=== PATIENT | male | born 1965 | race Caucasian/White ===

== ENCOUNTER 2018-09-25 16:00 | Outpatient (REF) | payer BC, SELFPAY ==
[2018-09-25 21:34] LABS: ALT 77 U/L (12-78); AST 43 U/L (15-37); Albumin 4.2 g/dL (3.4-5.0); Alkaline Phosphatase 90 U/L (46-116); Anion Gap 9.7 mmol/L (3-11); BUN 20 mg/dL (7-18); Bilirubin, Total 0.6 mg/dL (0.2-1.0); CO2 28.3 mmol/L (21.0-32.0); Chloride 103 mmol/L (98-107); Cholesterol 152 mg/dL (50-200); Glucose 95 mg/dL (70-100); HDL Cholesterol 29 mg/dL (40-60); LDL CHOLESTEROL 96 mg/dL (<100); Potassium 4.4 mmol/L (3.5-5.1); Sodium 141 mmol/L (136-145); TSH (W/Ref FT4) 2.12 uIU/mL (0.358-3.74); Total Protein 7.7 g/dL (6.4-8.2); Triglyceride 224 mg/dL (30-150)
[2018-09-25 21:58] LABS: Creatine Kinase 228 U/L (39-308)
[2018-09-29 09:13] LABS: Anaplasma phagocytophilum Negative (Negative); B. miyamotoi PCR Negative (Negative); Babesia divergens/MO-1 Negative (Negative); Babesia duncani Negative (Negative); Babesia microti Negative (Negative); Ehrlichia chaffeensis Negative (Negative); Ehrlichia ewingii/canis Negative (Negative); Ehrlichia muris eauclairensis Negative (Negative)
[2018-09-29 10:54] LABS: Rheumatoid Factor <8 IU/mL (<12.5)
[2018-09-29 12:49] LABS: Lyme Ab w Rflx to Lyme Confirm Negative
== END 2018-09-25 16:20 ==
LOC: NCHCN 16:00
PROVIDERS: PCP Family Medicine; Visit Provider Family Medicine
DX: E03.9 Hypothyroidism, unspecified (principal); I10 Essential (primary) hypertension; M25.50 Pain in unspecified joint
CPT/HCPCS: 80053; 80061; 82550; 83721; 84443; 86431; 86618; 87798

== ENCOUNTER 2019-03-26 19:09 | Outpatient (REF) | payer BC, SELFPAY ==
[2019-03-26 21:36] LABS: ALT 71 U/L (12-78); AST 35 U/L (15-37); Albumin 4.1 g/dL (3.4-5.0); Alkaline Phosphatase 108 U/L (46-116); Anion Gap 10.3 mmol/L (3-11); BUN 16 mg/dL (7-18); Bilirubin, Total 0.6 mg/dL (0.2-1.0); CO2 24.7 mmol/L (21.0-32.0); CREATININE 1.03 mg/dL (0.70-1.30); Calcium 8.6 mg/dL (8.5-10.1); Chloride 104 mmol/L (98-107); Glucose 84 mg/dL (70-100); Potassium 4.2 mmol/L (3.5-5.1); Sodium 139 mmol/L (136-145); TSH (W/Ref FT4) 1.13 uIU/mL (0.358-3.74); Total Protein 7.4 g/dL (6.4-8.2)
[2019-03-26 21:39] LABS: HCT 45.2 % (40.0-50.0); HGB 15.6 g/dL (13.5-17.5); Mean Corp. HGB Concentration 34.5 g/dL (32.0-36.0); Mean Corpuscular Hemoglobin 29.8 pg (27.0-33.0); Mean Corpuscular Volume 86.4 fL (80-95); Platelet Count 219 x1000/uL (130-400); RBC 5.23 m/cumm (4.50-6.00); RBC Distribution Width 12.4 % (11.8-14.1); White Blood Cell Count 7.43 k/cumm (4.4-10.8)
[2019-03-26 22:25] LABS: ESR 9 MM/HR (1-20)
[2019-03-30 11:13] LABS: Hepatitis C Ab w Rflx HCV PCR Negative (NEGAT)
== END 2019-03-26 19:29 ==
LOC: NCHCN 19:09
PROVIDERS: PCP Family Medicine; Visit Provider Family Medicine
DX: E03.9 Hypothyroidism, unspecified (principal); R53.83 Other fatigue; R94.5 Abnormal results of liver function studies; M25.50 Pain in unspecified joint; Z11.59 Encounter for screening for other viral diseases
CPT/HCPCS: 80053; 85027; 85652; 86803; 84443

== ENCOUNTER 2019-09-24 15:59 | Outpatient (REF) | payer BC, SELFPAY ==
[2019-09-24 22:22] LABS: ALT 72 U/L (16-63); AST 45 U/L (15-37); Albumin 4.1 g/dL (3.4-5.0); Alkaline Phosphatase 87 U/L (46-116); Anion Gap 11.1 mmol/L (3-11); BUN 21 mg/dL (7-18); Bilirubin, Total 0.5 mg/dL (0.2-1.0); CO2 24.9 mmol/L (21.0-32.0); CREATININE 1.15 mg/dL (0.70-1.30); Calcium 8.6 mg/dL (8.5-10.1); Chloride 105 mmol/L (98-107); Glucose 138 mg/dL (74-106); Potassium 4.1 mmol/L (3.5-5.1); Sodium 141 mmol/L (136-145); TSH (W/Ref FT4) 3.91 uIU/mL (0.36-3.74); Total Protein 7.3 g/dL (6.4-8.2)
[2019-09-24 22:48] LABS: FREE T4 0.83 ng/dL (0.76-1.46)
[2019-09-26 14:06] LABS: Calculated LDL 76 mg/dL; Cholesterol 147 mg/dL (<200); HDL Cholesterol 28 mg/dL (40-60); Triglyceride 217 mg/dL (<150)
== END 2019-09-24 16:19 ==
LOC: NCHCN 15:59
PROVIDERS: PCP Family Medicine; Visit Provider Family Medicine
DX: Z00.00 Encounter for general adult medical examination without abnormal findings (principal); E03.9 Hypothyroidism, unspecified; E78.5 Hyperlipidemia, unspecified; R94.5 Abnormal results of liver function studies
CPT/HCPCS: 80053; 80061; 84439; 84443

== ENCOUNTER 2020-03-10 16:49 | Outpatient (REF) | payer BC, SELFPAY ==
[2020-03-10 19:23] LABS: Hemoglobin A1C 5.9 % (3.8-5.6)
[2020-03-10 19:30] LABS: C-Reactive Protein 0.19 mg/dL (0.0-0.3); TSH (W/Ref FT4) 4.19 uIU/mL (0.36-3.74)
[2020-03-10 19:50] LABS: FREE T4 1.02 ng/dL (0.76-1.46)
[2020-03-10 20:26] LABS: Vitamin B12 438 pg/mL (193-986)
[2020-03-12 11:02] LABS: HIV-1/2 Ag & Ab Screen Negative (Negative)
[2020-03-14 10:58] LABS: Hepatitis C Ab w Rflx HCV PCR Negative (Negative)
[2020-03-14 14:49] LABS: Lyme Ab w Rflx to Lyme Confirm Negative (Negative)
[2020-03-14 18:38] LABS: Anaplasma phagocytophilum Negative (Negative); B. miyamotoi PCR Negative (Negative); Babesia divergens/MO-1 Negative (Negative); Babesia duncani Negative (Negative); Babesia microti Negative (Negative); Ehrlichia chaffeensis Negative (Negative); Ehrlichia ewingii/canis Negative (Negative); Ehrlichia muris eauclairensis Negative (Negative)
== END 2020-03-10 17:09 ==
LOC: NCHCN 16:49
PROVIDERS: PCP Family Medicine; Visit Provider Family Medicine
DX: E03.9 Hypothyroidism, unspecified (principal); R20.2 Paresthesia of skin; M25.50 Pain in unspecified joint; Z11.3 Encounter for screening for infections with a predominantly sexual mode of transmission; Z11.4 Encounter for screening for human immunodeficiency virus [HIV]; Z11.59 Encounter for screening for other viral diseases
CPT/HCPCS: 86803; 87389; 87491; 87591; 87798; 82607; 83036; 84439; 84443; 86140; 86618

== ENCOUNTER 2020-07-25 15:39 | Outpatient (REF) | payer BC, SELFPAY ==
[2020-07-28 02:33] LABS: Patient Race White; SARS-CoV-2 Specimen Source Nasopharynx
[2020-07-28 08:30] LABS: SARS-CoV-2 RNA Detected (Undetected)
== END 2020-07-25 15:59 ==
LOC: NCHCN 15:39
PROVIDERS: PCP Family Medicine; Visit Provider Family Medicine
DX: Z20.828 Contact with and (suspected) exposure to other viral communicable diseases (principal)
CPT/HCPCS: U0003

== ENCOUNTER 2021-01-12 15:55 | Outpatient (REF) | payer BC, SELFPAY ==
[2021-01-12 18:33] LABS: Hemoglobin A1C 5.9 % (<5.7)
[2021-01-12 18:36] LABS: ALT 99 U/L (16-63); AST 63 U/L (15-37); Albumin 4.1 g/dL (3.4-5.0); Alkaline Phosphatase 96 U/L (46-116); Anion Gap 10.9 mmol/L (3-11); BUN 18 mg/dL (7-18); Bilirubin, Total 0.8 mg/dL (0.2-1.0); CO2 25.1 mmol/L (21.0-32.0); CREATININE 1.1 mg/dL (0.70-1.30); Chloride 103 mmol/L (98-107); Glucose 107 mg/dL (74-106); Potassium 3.9 mmol/L (3.5-5.1); Sodium 139 mmol/L (136-145); TSH (W/Ref FT4) 1.85 uIU/mL (0.36-3.74); Total Protein 7.5 g/dL (6.4-8.2)
== END 2021-01-12 15:56 | disposition home or self-care (01) ==
LOC: NCHCN 15:55
PROVIDERS: PCP Family Medicine; Visit Provider Family Medicine
DX: Z00.00 Encounter for general adult medical examination without abnormal findings (principal); R73.03 Prediabetes; E03.9 Hypothyroidism, unspecified; I10 Essential (primary) hypertension; E78.5 Hyperlipidemia, unspecified
CPT/HCPCS: 80053; 83036; 84443

== ENCOUNTER 2021-02-03 15:16 | Outpatient (CLI) | payer BC, SELFPAY ==
--- NOTE | 2021-02-03 15:39 | DI.RAD_ITS ---
Exam(s) XR CHEST 2V PA LATERAL EXAM: XR CHEST 2V PA LATERAL CLINICAL HISTORY: chest wall pain,r07.89 TECHNIQUE: 2D digital imaging was performed. COMPARISON: CR CHEST 2 VIEWS PA,LAT from 02/27/2012 FINDINGS: MEDIASTINUM: Normal. HEART: Normal. PULMONARY VASCULATURE: Normal. LUNGS: Clear. PLEURAL SPACE: No pleural effusion or pneumothorax. BONE:Within normal limits for the patient's age. OTHER FINDINGS:Normal. IMPRESSION: No acute pulmonary findings. DATA REPOSITORY: RADIATION DOSE DELIVERED:
== END 2021-02-03 15:36 ==
PROVIDERS: PCP Family Medicine; Visit Provider Internal Medicine Cardiovascular Disease
DX: R07.89 Other chest pain (principal)
CPT/HCPCS: 71046

== ENCOUNTER 2021-10-25 09:58 | Outpatient (CLI) | payer BC, SELFPAY ==
[2021-10-25 10:36] VITALS: BP 151/94; PULSE 68; RESP 18; TEMP 36.6; O2SAT 97
[2021-10-25] MEDS: Normal Saline 250 ML 30 ML IV (11:00)
[2021-10-25 12:30] VITALS: BP 148/89; PULSE 62; RESP 16; TEMP 35.8; O2SAT 97
--- NOTE | 2021-10-25 16:10 | NUR.NOTE ---
Patient presented for MAB infusion following COVID + test result. Care during infusion provided by state appointed [employer]/EMT Team w/ [employer] Nursing Note:
== END 2021-10-25 09:59 | disposition home or self-care (01) ==
PROVIDERS: PCP Family Medicine; Visit Provider Family Medicine
DX: U07.1 COVID-19 (principal)
CPT/HCPCS: 96365; Q0047

== ENCOUNTER 2022-01-22 21:14 | Outpatient (REF) | payer BC, SELFPAY ==
[2022-01-22 20:07] LABS: ALT 82 U/L (16-63); AST 53 U/L (15-37); Albumin 4.4 g/dL (3.4-5.0); Alkaline Phosphatase 96 U/L (46-116); Anion Gap 12.1 mmol/L (3-11); BUN 21 mg/dL (7-18); Bilirubin, Total 0.5 mg/dL (0.2-1.0); CO2 22.9 mmol/L (21.0-32.0); CREATININE 0.9 mg/dL (0.70-1.30); Calcium 8.7 mg/dL (8.5-10.1); Chloride 104 mmol/L (98-107); Glucose 89 mg/dL (74-106); Potassium 4.5 mmol/L (3.5-5.1); Sodium 139 mmol/L (136-145); TSH 3.83 uIU/mL (0.36-3.74); Total Protein 7.9 g/dL (6.4-8.2)
== END 2022-01-22 21:15 | disposition home or self-care (01) ==
LOC: NCHCN 21:14
PROVIDERS: PCP Family Medicine; Visit Provider Nurse Practitioner Family
DX: E03.9 Hypothyroidism, unspecified (principal); I10 Essential (primary) hypertension; R41.82 Altered mental status, unspecified; B35.1 Tinea unguium
CPT/HCPCS: 80053; 84443

== ENCOUNTER 2022-03-23 12:33 | Outpatient (REF) | payer BC, SELFPAY ==
[2022-03-23 15:04] LABS: Total Iron Binding Capacity 376 ug/dL (250-450)
[2022-03-23 15:14] LABS: ALT 80 U/L (16-63); AST 38 U/L (15-37); Calculated LDL 148 mg/dL (<100); Cholesterol 234 mg/dL (<200); Ferritin 378 ng/mL (26-388); HDL Cholesterol 33 mg/dL (40-60); Triglyceride 266 mg/dL (<150)
[2022-03-26 09:35] LABS: Transferrin 277 mg/dL (201-352)
== END 2022-03-23 12:34 | disposition home or self-care (01) ==
LOC: NCHCN 12:33
PROVIDERS: PCP Family Medicine; Visit Provider Family Medicine
DX: R94.5 Abnormal results of liver function studies (principal); R79.89 Other specified abnormal findings of blood chemistry
CPT/HCPCS: 80061; 82728; 83550; 84450; 84460; 84466

== ENCOUNTER 2022-05-01 04:13 | Outpatient (CLI) | payer BC, SELFPAY ==
--- NOTE | 2022-05-01 12:50 | PDOC.EEG ---
Neurology EEG EEG: [facility] Department of Neurology EEG REPORT Date of Recordin05/01/22 Interpreting Physician: Dr. Rahel Montanez PCP/Referring Provider: Dr. Beckford Reason for study: Mr. Aguilera is a 56 year-old man with untreated LYDIA with an 8mo history of staring spells concerning for seizure. Current Medications: Home Medications Medication Instructions Recorded Confirmed Type aspirin 81 mg tablet,delayed 81 mg PO DAILY 03/20/13 02/05/17 History release (Aspir-) atorvastatin 20 mg tablet (Lipitor) 20 mg PO DAILY 03/20/13 02/05/17 History cetirizine 10 mg disintegrating 10 mg PO DAILY 03/20/13 02/05/17 History tablet (Zyrtec) lisinopril 10 mg tablet 10 mg PO DAILY 03/20/13 02/05/17 History omega 3-dha 60 mg-epa 90 mg-fish 1,000 mg PO DAILY 03/20/13 02/05/17 History oil 500 mg capsule, delayed release (Fish Oil) paroxetine HCl 40 mg tablet (Paxil) 40 mg PO DAILY 03/20/13 02/05/17 History multivitamin (Daily Multi-Vitamin 1 tab PO DAILY 12/04/14 02/05/17 History tablet) epinephrine 0.3 mg/0.3 mL 0.3 mg IM Q5-15M PRN 07/27/20 History injection, auto-injector (EpiPen 2-Claudio) levothyroxine 88 mcg tablet 88 mcg PO DAILY 07/27/20 History meclizine 25 mg tablet 25 mg PO TID PRN 07/27/20 History modafinil 100 mg tablet (Provigil) 100 mg PO DAILY PRN 07/27/20 History paroxetine HCl 20 mg tablet (Paxil) 20 mg PO DAILY 07/27/20 History METHODS: A 21 channel digitized electroencephalogram was performed in the [facility] Clinical Neurophysiology Laboratory. The 10/20 international system of electrode placement was used and bipolar and referential electrode montages were recorded. In addition to EEG the patient was monitored for EKG and lateral/vertical eye movements. Activation procedures of photic stimulation and hyperventilation were performed if applicable. Video was used during activation procedures and during events where applicable. The duration of the recording was 30 minutes. DESCRIPTION OF EEG: The patient was noted to be awake and drowsy during the recording. During maximal wakefulness a 10-Hz posterior background rhythm was present which was well-modulated, symmetrical, reactive to eye opening, and of moderate voltage. With eye opening the background activity changed to a low voltage mixture of alpha, beta, and occasional theta range frequencies. Faster frequencies were present in the bilateral anterior head regions. There was a normal anterior-posterior voltage gradient. During drowsiness, there was attenuation of the posterior dominant background rhythm and vertex waves. No stage II sleep was recorded. Activating Procedures: Photic stimulation was performed which produced a symmetrical posterior driving response at various flash frequencies. Hyperventilation was performed with moderate effort and produced no physiological slowing of the background. EKG: EKG revealed normal sinus rhythm. INTERPRETATION: This EEG is normal during the awake state as well as during photic stimulation and hyperventilation. PRIOR EEG: none CLINICAL CORRELATION: No focal regions of cerebral dysfunction or epileptiform activity was present. No sleep was recorded during the study which reduces the sensitivity of the exam. If seizure remains a part of the differential, consider a repeat sleep-deprived EEG or overnight ambulatory EEG. Epilepsy remains a clinical diagnosis and a normal EEG does not rule out epilepsy. Clinical correlation is advised. Rahel Montanez MD
== END 2022-05-01 04:14 | disposition home or self-care (01) ==
LOC: RT 04:13
PROVIDERS: PCP Family Medicine; Visit Provider Family Medicine
DX: R29.818 Other symptoms and signs involving the nervous system (principal)
CPT/HCPCS: 95816

== ENCOUNTER 2023-10-17 19:38 | Outpatient (REF) | payer BC, SELFPAY ==
[2023-10-17 19:40] LABS: Hemoglobin A1C 6.2 % (<5.7)
[2023-10-17 19:51] LABS: ALT 103 U/L (16-63); AST 65 U/L (15-37); Albumin 4.2 g/dL (3.4-5.0); Alkaline Phosphatase 102 U/L (46-116); BUN 17 mg/dL (7-18); CREATININE 1.2 mg/dL (0.70-1.30); Calcium 9.1 mg/dL (8.5-10.1); Chloride 104 mmol/L (98-107); Estimated GFR 69.66 (mL/min/1.73m2); Glucose 93 mg/dL (74-106); Potassium 4.4 mmol/L (3.5-5.1); Sodium 139 mmol/L (136-145); TSH (W/Ref FT4) 2.49 uIU/mL (0.36-3.74); Total Protein 8.6 g/dL (6.4-8.2)
== END 2023-10-17 19:39 | disposition home or self-care (01) ==
LOC: NCHCN 19:38
PROVIDERS: PCP Family Medicine; Visit Provider Family Medicine
DX: Z00.00 Encounter for general adult medical examination without abnormal findings (principal); E03.9 Hypothyroidism, unspecified; I10 Essential (primary) hypertension; R79.89 Other specified abnormal findings of blood chemistry; R73.09 Other abnormal glucose
CPT/HCPCS: 80053; 83036; 84443

== ENCOUNTER 2024-12-09 01:50 | Outpatient (CLI) | payer BC, SELFPAY ==
--- NOTE | 2024-12-09 10:47 | DI.RAD_ITS ---
Exam(s) XR KNEE RT 3V AP,LAT,TAMMY EXAM: XR KNEE RT 3V AP,LAT,TAMMY CLINICAL HISTORY: SWELLING RT KNEE,M25.469,NEW EFFUSION,? ARTHROPATHY. TECHNIQUE: 2D digital imaging was performed. Three views. COMPARISON: CR LEFT KNEE COMPLETE from 12/11/2007 FINDINGS: Exam is limited by overlying clothing. BONES: No acute fracture is present. No bony destructive lesion is seen. Enthesophytes at the upper aspect of the patella and tibial tubercle.. JOINTS: The knee is normally aligned. No joint effusion is seen. Moderate narrowing of the medial fem oral tibial joint space with mild periarticular spurring. SOFT TISSUE: Prominent soft tissue swelling anterior to the patellar tendon could indicate but prepat ellar bursitis. IMPRESSION: Focal soft tissue swelling anterior to the patellar tendon could indicate prepatellar bursitis. 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 DATA REPOSITORY: RADIATION DOSE DELIVERED:
== END 2024-12-09 02:10 ==
LOC: DI 01:50
PROVIDERS: PCP Family Medicine; Visit Provider Family Medicine
DX: M25.461 Effusion, right knee (principal)
CPT/HCPCS: 73562

== ENCOUNTER 2024-12-10 20:36 | Outpatient (REF) | payer BC, SELFPAY ==
[2024-12-10 20:20] LABS: ALT 93 U/L (16-63); AST 59 U/L (15-37); Albumin 4.1 g/dL (3.4-5.0); Alkaline Phosphatase 111 U/L (46-116); Anion Gap 10.7 mmol/L (3-11); BUN 18 mg/dL (7-18); CO2 24.3 mmol/L (21.0-32.0); CREATININE 1.1 mg/dL (0.70-1.30); Calcium 8.8 mg/dL (8.5-10.1); Calculated LDL 68 mg/dL (<100); Chloride 104 mmol/L (98-107); Cholesterol 151 mg/dL (<200); Estimated GFR 76.85 (mL/min/1.73m2); Glucose 169 mg/dL (74-106); HDL Cholesterol 34 mg/dL (>or=40); Potassium 4.4 mmol/L (3.5-5.1); Sodium 139 mmol/L (136-145); TSH 2.32 uIU/mL (0.36-3.74); Total Protein 8.2 g/dL (6.4-8.2); Triglyceride 249 mg/dL (<150)
[2024-12-11 17:52] LABS: T4, Free 1.3 ng/dL (0.8-2.2)
[2024-12-11 18:25] LABS: PSA, Screening 0.4 ng/mL (<=4.5)
== END 2024-12-10 20:37 | disposition home or self-care (01) ==
LOC: NCHCN 20:36
PROVIDERS: PCP Family Medicine; Visit Provider Family Medicine
DX: Z00.00 Encounter for general adult medical examination without abnormal findings (principal); I10 Essential (primary) hypertension; E03.9 Hypothyroidism, unspecified; R73.03 Prediabetes; E78.5 Hyperlipidemia, unspecified; Z12.5 Encounter for screening for malignant neoplasm of prostate
CPT/HCPCS: 80053; 80061; 84153; 86141; 83036; 84439; 84443

== ENCOUNTER 2025-03-04 03:26 | Outpatient (CLI) | payer BC, SELFPAY ==
[2025-03-04] MEDS: Methacholine 100 MG VIAL IH (15:18)
[2025-03-04] MEDS: Inhaler, Assist Device 1 EACH MC (15:19)
[2025-03-04] MEDS: Albuterol HFA 18 GM 200 PUFF INH IH (15:19)
--- NOTE | 2025-03-28 09:16 | W.PFT ---
Date of service: 03/04/25 Time of Service: 12:56 Pulmonary Function Test Result Indications: Coughing Interpretation Spirometry: No airflow limitation at baseline. There was no change in FEV1 with administration of 16mg/mL methacholine. Lung Volumes: Normal lung volumes Diffusion Capacity: Normal diffusion Airway Pressure: Normal airways resistance Impression Normal pulmonary function and a negative methacholine. Clinical Correlation therefore is recommended.
== END 2025-03-04 03:27 | disposition home or self-care (01) ==
LOC: RT 03:26
PROVIDERS: PCP Family Medicine; Visit Provider Student in an Organized Health Care Education/Training Program
DX: R05.9 Cough, unspecified (principal)
CPT/HCPCS: 94070; 94726; 94729; 95070; J7674

== ENCOUNTER 2025-07-01 17:25 | Outpatient (REF) | payer BC, SELFPAY ==
[2025-07-01 19:23] LABS: ALT 62 U/L (16-63); AST 45 U/L (15-37); Albumin 3.7 g/dL (3.4-5.0); Alkaline Phosphatase 109 U/L (46-116); Anion Gap 11.9 mmol/L (3-11); BUN 20 mg/dL (7-18); Bilirubin, Total 0.8 mg/dL (0.2-1.0); CO2 22.1 mmol/L (21.0-32.0); Calcium 8.6 mg/dL (8.5-10.1); Chloride 106 mmol/L (98-107); Estimated GFR 97.17 (mL/min/1.73m2); Glucose 144 mg/dL (74-106); Potassium 4.6 mmol/L (3.5-5.1); Sodium 140 mmol/L (136-145); Total Protein 7.1 g/dL (6.4-8.2); Vitamin B12 376 pg/mL (193-986)
[2025-07-05 13:30] LABS: Albumin 56.2 % (55.8-66.1); Albumin g/dL 4.1 g/dL (3.6-5.2); Alpha 1 g/dL 0.30 g/dL (0.15-0.40); Alpha 2 g/dL 0.90 g/dL (0.50-1.00); Beta g/dL 0.90 g/dL (0.60-1.20); Gamma g/dL 1.10 g/dL (0.60-1.60); Total Protein 7.3 g/dL (6.3-8.2)
== END 2025-07-01 17:26 | disposition home or self-care (01) ==
LOC: NCHCN 17:25
PROVIDERS: PCP Family Medicine; Visit Provider Family Medicine
DX: G62.9 Polyneuropathy, unspecified (principal); I10 Essential (primary) hypertension
CPT/HCPCS: 80053; 82607; 84165; 84439

== ENCOUNTER 2025-07-07 03:36 | Outpatient (CLI) | payer BC, SELFPAY ==
--- NOTE | 2025-07-07 | DI.RAD_ITS ---
Exam(s) XR KNEE LT 3V AP,LAT,TAMMY EXAM: XR KNEE LT 3V AP,LAT,TAMMY CLINICAL HISTORY: LT KNEE PAIN,M25.50. TECHNIQUE: 2D digital imaging was performed. Three views. COMPARISON: CR XR KNEE RT 3V AP,LAT,TAMMY from 12/09/2024 FINDINGS: BONES: No acute fracture is present. No bony destructive lesion is seen. Patellar enthesophytes. Prominent enthesophyte at the tibial tubercle. JOINTS: The knee is normally aligned. There is mild to moderate narrowing of the medial femoral tibial joint space and slight periarticular spurring. The lateral femoral tibial and patellofemoral joints are unremarkable. No joint effusion is seen. SOFT TISSUE: Normal. 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 DATA REPOSITORY: RADIATION DOSE DELIVERED:
== END 2025-07-07 03:56 ==
PROVIDERS: PCP Family Medicine; Visit Provider Family Medicine
DX: M17.12 Unilateral primary osteoarthritis, left knee (principal)
CPT/HCPCS: 73562

== ENCOUNTER 2025-08-04 09:35 | Outpatient (REF) | payer BC, SELFPAY ==
[2025-08-04 09:28] LABS: Abs Immature Grans 0.02 10^3/uL (0.0-0.06); HCT 47.8 % (40.0-50.0); HGB 16.0 g/dL (13.5-17.5); Immature Grans % 0.3 %; MCH 29.4 pg (27.0-33.0); MCHC 33.5 % (32.0-36.0); MCV 88 fL (80-95); MPV 10.9 fL (8.0-11.0); Platelet Count 169 10^3/uL (130-400); RBC 5.45 10^6/uL (4.36-5.78); RDW 12.5 % (11.8-14.1); RDW-SD 40.2 fL; WBC 7.33 10^3/uL (4.4-10.8)
== END 2025-08-04 09:36 | disposition home or self-care (01) ==
LOC: LBN 09:35
PROVIDERS: PCP Family Medicine; Visit Provider Internal Medicine Pulmonary Disease
DX: R05.3 Chronic cough (principal)
CPT/HCPCS: 85025